=== PATIENT | male | born 1955 ===

== ENCOUNTER 2017-07-20 13:02 | Emergency (ER) | payer OTHER ==
[2017-07-20 13:02] VITALS: BMI 29.6
[2017-07-20 13:57] VITALS: PULSE 89
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
--- NOTE | 2017-07-20 14:25 | RAD ---
HISTORY: chest pain COMPARISON: Comparison chest dated 03/18/2016. TECHNIQUE: Chest PA and lateral FINDINGS: LUNGS: Suspect minor right basilar atelectasis PLEURA: No significant pleural effusion identified. No pneumothorax apparent. CARDIOVASCULAR: Heart appears mildly enlarged OSSEOUS STRUCTURES: Mild multilevel degenerative spondylosis of the thoracic spine Minor degenerative changes both shoulder girdles VISUALIZED UPPER ABDOMEN: Normal. OTHER FINDINGS: None. IMPRESSION: Suspect minor right basilar atelectasis. Mild cardiomegaly.
[2017-07-20 14:53] LABS: BASO % 0.4 % (0.0-2.0); EOS # 0.1 K/uL (0.0-0.7); HEMATOCRIT 33.3 % (35.0-51.0); MEAN CELL VOLUME 99.9 fl (80.0-94.0); MEAN CORPUSCULAR HEMOGLOBIN 33.2 pg (27.0-31.0); MEAN CORPUSCULAR HGB CONC 33.3 g/dL (33.0-37.0); MEAN PLATELET VOLUME 7.5 fl (7.2-11.7); MONO # 0.5 K/uL (0.0-0.8); MONO % 6.5 % (0.0-10.0); NEUT # 6.6 K/uL (1.8-7.0); NEUT % 80.1 % (50.0-75.0); WHITE BLOOD COUNT 8.2 K/uL (4.8-10.8)
[2017-07-20 15:05] LABS: BLOOD UREA NITROGEN 17 mg/dl (9-20); CALCIUM 9.3 mg/dL (8.4-10.2); CARBON DIOXIDE 26 mmol/L (22-30); CHLORIDE 103 mmol/L (98-107); GFR AFRICAN-AMERICAN > 60; GLUCOSE,RANDOM 267 mg/dL (75-110); POTASSIUM 4.2 MMOL/L (3.6-5.0); SODIUM 141 mmol/l (132-148)
[2017-07-20 15:15] VITALS: RESP 18; TEMP 98
[2017-07-20] MEDS ORDERED: Iohexol 300 100 ML IJ ONE (16:09)
[2017-07-20] MEDS ORDERED: Sodium Chloride 0.9% 50 ML IV ONE (16:09)
--- NOTE | 2017-07-20 17:00 | CT ---
PROCEDURE: CT scan abdomen and pelvis dated 07/20/2017 HISTORY: LLQ pain COMPARISON: Comparison made with CT scan chest abdomen pelvis dated 03/18/2016 TECHNIQUE: Contiguous axial images of the abdomen and pelvis performed following intravenous injection of approximately 95 cc Omnipaque 300 contrast material. Coronal and Sagittal reformats generated. Radiation dose: Total exam DLP = 829.81 mGy-cm. This CT exam was performed using one or more of the following dose reduction techniques: Automated exposure control, adjustment of the mA and/or kV according to patient size, and/or use of iterative reconstruction technique. FINDINGS: LOWER THORAX: Minor bibasilar atelectasis/ scarring changes. No focal consolidation effusion or basilar pneumothorax. Tiny hiatal hernia. Heart size within range of normal. No significant pericardial effusion. LIVER: Liver is enlarged measuring nearly 20 cm in CC dimension. Mild diffuse fatty hepatic infiltration. No obvious hepatic mass collection or calcification. Portal and splenic veins are opacified. GALLBLADDER AND BILE DUCTS: Gallbladder is physiologically distended. No evidence of intraluminal gallbladder calculi. . PANCREAS: Visualized portions of the pancreas appear slightly atrophic and fatty replaced though otherwise unremarkable. SPLEEN: Spleen remains slightly prominent. ADRENALS: No adrenal lesions are identified. KIDNEYS AND URETERS: The kidneys demonstrate symmetric nephrograms. No evidence of nephrolithiasis or hydronephrosis. Re- demonstrated is a partially exophytic low-attenuation posterior aspect lower pole right kidney that measures approximately 11.5 x 8.75 mm with Hounsfield units ranging in the upper teens to low 30s. While this could represent a hyperdense cyst solid must be excluded. There is an additional tiny approximately 5.3 mm rounded low-attenuation seen anterolateral cortex mid pole right left right kidney that may represent a hyperdense cyst. This also appears unchanged the Followup ultrasound could confirm and exclude solid lesions. Some vague infiltration changes seen in the perinephric fat bilaterally more so on the left side nonspecific. BLADDER: Urinary bladder is incompletely distended which may in part account for thick-walled appearance. Muscular hypertrophy may contribute. Cystitis or other intrinsic/invasive wall lesion could be excluded with followup studies. Correlation urinalysis recommended. CT REPRODUCTIVE: Prostate gland measures approximately 4.6 cm in transverse dimension. Findings likely due to BPH however correlation with PSA recommended. APPENDIX: Normal-appearing appendix best seen on axial image number [id number] BOWEL: Evaluation of the bowel is somewhat limited due to the lack of oral contrast. Stomach is incompletely distended which presumably in part accounts thick-walled appearance. Gastritis or other intrinsic/ invasive wall lesion also not excluded. Visualized loops of small bowel exhibit normal contour and caliber. No evidence of acute mechanical small bowel obstruction. There is moderate amount of stool is throughout the colon suggesting mild fecal retention/ constipation PERITONEUM: Unremarkable. No fluid collection. No free air. LYMPH NODES: Unremarkable. No enlarged lymph nodes. VASCULATURE: Unremarkable. No aortic aneurysm. BONES: Mild multilevel degenerative spondylosis of the lower thoracic and lumbar spine. OTHER FINDINGS: None. IMPRESSION: Hepatomegaly with mild fatty hepatic infiltration. . Spleen remains slightly prominent. . Findings suggest mild constipation. Two low-attenuation foci right kidney essentially unchanged in appearance from prior exam. These foci exhibit Hounsfield units higher than that of simple cysts and could represent hyperdense cysts however followup ultrasound could be performed confirm and exclude other pathology. Some vague infiltration changes seen in the perinephric fat bilaterally more so on the left side nonspecific. The urinary bladder wall thickening likely due to incomplete distention ; muscular hypertrophy may contribute. Rule out cystitis or other intrinsic/invasive wall lesion not excluded. See above discussion for additional details and findings.
[2017-07-20 19:56] VITALS: BP 133/86; O2SAT 97
--- NOTE | 2017-07-21 06:36 | CARD ---
APPROVED REPORT EKG Measurement Heart [id number] <Conclusion> Normal sinus rhythm Normal ECG
== END 2017-07-20 19:56 | disposition home or self-care (01) ==
LOC: H.ER 13:02
DX: R07.89 Other chest pain (principal); R10.9 Unspecified abdominal pain; J40 Bronchitis, not specified as acute or chronic; E11.9 Type 2 diabetes mellitus without complications; E78.00 Pure hypercholesterolemia, unspecified; F41.9 Anxiety disorder, unspecified; I11.9 Hypertensive heart disease without heart failure; I51.7 Cardiomegaly; Z79.4 Long term (current) use of insulin; Z79.82 Long term (current) use of aspirin
CPT/HCPCS: 71020; 74177; 80048; 84484; 85025; 87040; 93005; 99284; Q9967